=== PATIENT | female | born 2000 | race Caucasian/White ===

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

== ENCOUNTER 2020-05-24 15:06 | Emergency (ER) | payer MEDICAID, SELFPAY ==
[2020-05-24 15:50] VITALS: BP 136/82; PULSE 63; RESP 16; TEMP 36.2; O2SAT 98; BMI 25.7
--- NOTE | 2020-05-24 16:14 | HMH.EDUTC ---
[facility] Disposition Clinical Impression: Dental abscess, Jaw pain Disposition: Home, Self-Care Condition on Discharge: Good Instructions: Tooth Abscess Additional Instructions: Drink plenty of fluids. Take tylenol for pain or fever. Return if you begin to have difficulty breathing. Follow up with your regular doctor. GO TO THE ER FOR ANY WORSENING SYMPTOMS You have to follow up with a dentist. Prescriptions: Amoxicillin [Amoxicillin 500mg Tab] 500 mg PO TID 10 Days #30 tab Transmission Status: Received by [id number] Referrals: Prakash Pope MD [Primary Care Provider] - Time of Disposition: 16:22 Medical Decision Making - Medical Records Medical records reviewed: No: I reviewed the patient's medical records. - Barney Inquiry Pt receiving controlled substance: No Vital Signs: 05/24/20 15:50 05/24/20 16:28 Temperature 97.2 F L 97.2 F L Temperature Source Oral Pulse Rate 63 Pulse Rate [Right Brachial] 63 Respiratory Rate 16 16 Blood Pressure 136/82 Blood Pressure [Left Arm] 136/82 Blood Pressure Mean [Left Arm] 100 Blood Pressure Source [Left Arm] Automatic Cuff Blood Pressure Position [Left Arm] Sitting 02 Sat by Pulse Oximetry 98 Oxygen Delivery Method Room Air [facility] HPI - General Stated complaint: infected teeth Time Seen by Provider: 05/24/20 16:14 Mode of Arrival: Ambulatory Source of Information: Patient Limitations: No Limitations Description of Symptoms (Recalled from Triage Doc. by RN): PATIENT C/O INFECTED TEETH X 8 MONTHS HEENT Symptoms (Recalled from RN notes): No Resp Symptoms (Recalled from RN notes): No Skin Symptoms (Recalled from RN notes): No MS Symptoms (Recalled from RN notes): No Functional Status (Recalled from RN notes): WNL - History of Present Illness Provider Complaint: She states that she has left sided dental pain. This has been ongoing for the past several months. She denies any fever/chills. - Related Data Home Medications Medication Instructions Recorded Confirmed Vit,Calc78/Iron/Folic 1 each PO DAILY 04/17/19 04/17/19 [Prenatabs FA Tablet] Previous Rx's Medication Instructions Recorded Amoxicillin [Amoxicillin 500mg Tab] 500 mg PO TID 10 Days #30 tab 05/24/20 Allergies Allergy/AdvReac Type Severity Reaction Status Date / Time No Known Allergies Allergy Unverified 04/16/17 14:13 - Worker's Comp Is this a Worker's Comp case?: No [facility] History - Hepatitis A Screen Drug use history?: No High risk sexual behaviors?: No History of sexually transmitted infection?: No Currently employed?: No Childcare worker?: No Do you have indoor plumbing?: Yes Do you have electricity?: Yes Attestation statement:: This patient has been screened for Hepatitis A risk factors. I have reviewed the patient's past medical history: Yes Medical History: Denies:: Cancer, Diabetes Mellitus Type 1, Diabetes Mellitus Type 2, Internal Pacemaker, MRSA Laterality Cases: Bilateral: Tonsillectomy Other Surgeries: No: Pacemaker Amputation: No - Social History Smoking Status: Current every day smoker Tobacco Type: cigarettes # Packs/Day (cigarettes): 1 Alcohol Intake: never Occupational Status: other ROS Obtained: Yes All systems reviewed & no additional complaints - Constitutional Constitutional: Denies chills, Denies fever(s), Reports poor appetite, Denies malaise - ENT Ears, Nose, Mouth, and Throat: Reports as per HPI - Cardiovascular Cardiovascular: Denies chest pain Physical Exam - General General appearance: alert, in no apparent distress - Head Head exam: atraumatic, normocephalic, normal inspection - Eye Eye exam: Present: normal appearance, PERRL, EOMI - ENT ENT exam: Present: normal exam, normal oropharynx, mucous membranes moist, TM's normal bilaterally, normal external ear exam - Neck Neck exam: Present: normal inspection, full ROM, trachea midline. Absent: meningismus, lym
[2020-05-24 16:28] VITALS: BP 136/82; PULSE 63; RESP 16; TEMP 36.2; O2SAT 98
== END 2020-05-24 16:31 | disposition home or self-care (01) ==
PROVIDERS: Emergency Provider Nurse Practitioner Family; PCP Internal Medicine Adolescent Medicine
DX: K04.7 Periapical abscess without sinus (principal); F17.210 Nicotine dependence, cigarettes, uncomplicated
CPT/HCPCS: 99202; G0463

== ENCOUNTER 2020-08-31 17:02 | Emergency (ER) | payer MEDICAID, SELFPAY ==
--- NOTE | 2020-08-31 | XR_ITS ---
PROCEDURE: XR SHOULDER RT 1V X-RAY SHOULDER RIGHT ONE-VIEW CLINICAL INDICATION: DISLOCATION COMPARISON: CR SHOU3R [id number] VIEWS from 11/26/2015 CR SHOU1R [id number] VIEW-RT from 08/25/2016 CR SHOU3R [id number] VIEWS from 08/25/2016 CR SHOU1R [id number] VIEW-RT from 04/01/2017 CR SHOU3R [id number] VIEWS from 04/01/2017 CR SHOU3R [id number] VIEWS from 04/17/2017 CR SHOU1R [id number] VIEW-RT from 04/17/2017 CR XR SHOULDER RT 1V from 08/31/2020 FINDINGS: Single AP view of the shoulder at 1719 hours demonstrates infra glenoid dislocation. No obvious fracture. Another single AP view of the shoulder following reduction of the dislocation at 1740 hours demonstrates relocation of the humeral head. There is lucency along the lateral aspect of the humeral head possibly related to a Hill-Sachs injury. MRI or CT may confirm. IMPRESSION: Infra glenoid dislocation of the right humeral head which has been reduced with possible Hill-Sachs injury. Dictated by: Gabriel Chavis MD 09/01/2020 08:54 Gabriel Chavis MD in [place] 09/01/2020 08:54
[2020-08-31 17:03] VITALS: BP 122/74; PULSE 77; RESP 20; TEMP 36.6; O2SAT 98; BMI 22.6
--- NOTE | 2020-08-31 17:06 | HMH.EDGENADL ---
ED Disposition Clinical Impression: Recurrent dislocation, right shoulder Disposition: Home, Self-Care Condition on Discharge: Good Instructions: DI for Shoulder Dislocation, DI for Moderate Sedation, How to Use a Shoulder Immobilizer Additional Instructions: Shoulder immobilizer. Ibuprofen for pain. Ice for pain and swelling. Follow-up with orthopedics next week, Dr. Abarca, call for appointment. Referrals: Jeramie Abarca MD [Staff Physician] - - Critical Care Critical Care Time: No Attestation: On 08/31/20, the high probability of a clinically significant, sudden or life threatening deterioration of the following system(s) required my full and direct attention, intervention and personal management. The time I documented below is in addition to time spent performing reported procedures but includes the following listed in this critical care notation. Medical Decision Making - Barney Inquiry Pt receiving controlled substance: No Vital Signs: 08/31/20 17:03 08/31/20 17:07 08/31/20 17:25 Temperature 98 F 98.4 F Temperature Source Oral Oral Pulse Rate Pulse Rate [Radial] 77 56 L 74 Respiratory Rate 20 18 16 Blood Pressure Blood Pressure [Right Arm] 122/74 117/62 136/75 Blood Pressure Mean [Right Arm] 90 80 95 Blood Pressure Source Blood Pressure Source [Right Arm] Automatic Cuff Blood Pressure Position Blood Pressure Position [Right Arm] Sitting Sitting 02 Sat by Pulse Oximetry 98 100 100 Oxygen Delivery Method Room Air Room Air Nasal Cannula 08/31/20 18:20 Temperature 98.4 F Temperature Source Oral Pulse Rate 60 Pulse Rate [Radial] Respiratory Rate 20 Blood Pressure 111/55 L Blood Pressure [Right Arm] Blood Pressure Mean [Right Arm] Blood Pressure Source Automatic Cuff Blood Pressure Source [Right Arm] Blood Pressure Position Sitting Blood Pressure Position [Right Arm] 02 Sat by Pulse Oximetry Oxygen Delivery Method Room Air Orders (Tests/Meds): ED MEDICATIONS Discontinued Medications Generic Name Dose Route Start Last Admin Trade Name Freq PRN Reason Stop Dose Admin Propofol 100 mg 08/31/20 17:25 08/31/20 17:25 Propofol 10mg/Ml 20ml Vial IV 08/31/20 17:26 100 mg ONCE ONE Administration Propofol 50 mg 08/31/20 17:32 08/31/20 17:32 Propofol 10mg/Ml 20ml Vial IV 08/31/20 17:33 50 mg ONCE ONE Administration ORDERS Category Date Time Status XR shoulder RT 1V Routine Exams 08/31/20 Taken XR shoulder RT 1V Routine Exams 08/31/20 17:38 Taken - Radiology Data #2 Image(s): Shoulder Image Reviewed: Yes I reviewed the patient's radiology image #1 Dislocation #2 post reduction: General Adult HPI - General Stated complaint: dislocated right shoulder Time Seen by Provider: 08/31/20 17:07 - History of Present Illness HPI narrative: 2 hours ago dislocated her right shoulder, just by pointing . 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 This time it would not go back into place. She has not had to come to the hospital for reduction of her shoulder for quite some time. Her record here indicates that she was here in 2017 for dislocated shoulder and she thinks that was the last time she had to be treated in the hospital for the condition. She has seen an orthopedist and she says that she was told she would need surgery, but she was too young at the time. She has not followed up since then. Last oral intake 2 hours ago. - Related Data Home Medications Medication Instructions Recorded Confirmed Vit,Calc78/Iron/Folic 1 each PO DAILY 04/17/19 04/17/19 [Prenatabs FA Tablet] Previous Rx's Medication Instructions Recorded Amoxicillin [Amoxicillin 500mg Tab] 500 mg PO TID 10 Days #30 tab 05/24/20 Allergies
[2020-08-31 17:07] VITALS: BP 117/62; PULSE 56; RESP 18; O2SAT 100
[2020-08-31 17:25] VITALS: BP 136/75; PULSE 74; RESP 16; TEMP 36.9; O2SAT 100
--- NOTE | 2020-08-31 17:38 | XR_ITS ---
This report is currently processing and HAS NOT BEEN OFFICIALLY SIGNED BY THE PHYSICIAN - ESTIMATED TIME OF APPROVAL IS 09/01/2020 08:57. PROCEDURE: XR SHOULDER RT 1V X-RAY SHOULDER RIGHT ONE-VIEW CLINICAL INDICATION: DISLOCATION COMPARISON: CR SHOU3R [id number] VIEWS from 11/26/2015 CR SHOU1R [id number] VIEW-RT from 08/25/2016 CR SHOU3R [id number] VIEWS from 08/25/2016 CR SHOU1R [id number] VIEW-RT from 04/01/2017 CR SHOU3R [id number] VIEWS from 04/01/2017 CR SHOU3R [id number] VIEWS from 04/17/2017 CR SHOU1R [id number] VIEW-RT from 04/17/2017 CR XR SHOULDER RT 1V from 08/31/2020 FINDINGS: Single AP view of the shoulder at 1719 hours demonstrates infra glenoid dislocation. No obvious fracture. Another single AP view of the shoulder following reduction of the dislocation at 1740 hours demonstrates relocation of the humeral head. There is lucency along the lateral aspect of the humeral head possibly related to a Hill-Sachs injury. MRI or CT may confirm. IMPRESSION: Infra glenoid dislocation of the right humeral head which has been reduced with possible Hill-Sachs injury. Dictated by: Gabriel Chavis MD 09/01/2020 08:54 in [place]
[2020-08-31 18:20] VITALS: BP 111/55; PULSE 60; RESP 20; TEMP 36.9; O2SAT 100
== END 2020-08-31 18:25 | disposition home or self-care (01) ==
PROVIDERS: Emergency Provider Emergency Medicine; PCP Nurse Practitioner Family
DX: M24.411 Recurrent dislocation, right shoulder (principal); F17.210 Nicotine dependence, cigarettes, uncomplicated
CPT/HCPCS: 23655; 73020; 96374; 99152; 99283

== ENCOUNTER 2022-12-25 17:01 | Emergency (ER) | payer MEDICAID, SELFPAY ==
[2022-12-25 17:35] VITALS: BP 116/75; PULSE 99; RESP 19; TEMP 36.8; O2SAT 99; BMI 24.9
[2022-12-25 18:03] LABS: Adenovirus,PCR Not Detected (NotDetected); Bordetella Pertussis Not Detected (NotDetected); Chlamydophila Pneumoniae, PCR Not Detected (NotDetected); Coronavirus 19, PCR Not Detected (NotDetected); Coronavirus 229E Not Detected (NotDetected); Coronavirus NL63 Not Detected (NotDetected); Coronavirus OC43 Not Detected (NotDetected); Coronovirus HKU1,PCR Not Detected (NotDetected); Human Metapneumovirus Not Detected (NotDetected); Influenza A, PCR Not Detected (NotDetected); Influenza AH1, 2009 Not Detected (NotDetected); Influenza AH1, PCR Not Detected (NotDetected); Influenza AH3,PCR Not Detected (NotDetected); Influenza B, PCR Not Detected (NotDetected); Mycoplasma Pneumoniae, PCR Not Detected (NotDetected); Parainfluenza 1, PCR Not Detected (NotDetected); Parainfluenza 2, PCR Not Detected (NotDetected); Parainfluenza 3, PCR Not Detected (NotDetected); Parainfluenza 4, PCR Not Detected (NotDetected); Respiratory Syncytial Virus Not Detected (NotDetected)
--- NOTE | 2022-12-25 18:11 | EXP.UTC ---
Discharge Plan Disposition Patient Disposition: Home, Self-Care Condition: Good Prescriptions Prescriptions: New apdspwomigjgdyk-olqfftwws-DN [Bromfed DM] 2-30-10 mg/5 mL Syrup 10 ml PO Q4H PRN (Reason: Cough) Qty: 240 0RF No Action amoxicillin 500 MG tablet 500 mg PO TID 10 Days Qty: 30 0RF vit,vfsy59-bhfs-hhcmx 1 EACH tablet 1 each PO DAILY Referrals Follow up/Referrals: Leeann Ospina APRN [Primary Care Provider] - See instructions Activity Restrictions/Add. Instructions Additional Instructions/Restrictions: *Monitor Temp, Over the counter Motrin or Tylenol as directed/as needed Tylenol every 4 hours and Motrin every 6 hours (as long as your family doctor has told you that you can take it) for fever or pain. and straight to ER if unable to lower temp less than 101.0 after medication given *Warm salt water gargles may help to soothe the throat *Throat Lozenges? *Warm fluids like tea with honey may help to soothe the throat? *Sleep elevated *Humidifier/Vaporizer Follow up IMMEDIATELY for new or worsening symptoms or no Noticeable improvement over the next 48-72 hours. 911 for difficulty breathing or swallowing You were tested for today for Upper Respiratory Panel with COVID19 your test result should be back in the next 24-48 hours, you may check your results on the [facility] Portal Clinical Impressions Clinical Impression: Viral upper respiratory infection Instructions Patient Instructions: DI for Viral Upper Respiratory Infection -- Adult Discharge ED Provider: Mague Tay [facility] HPI General Stated complaint: cough sore throat body aches Mode of Arrival: Ambulatory Source of Information: Patient Limitations: No Limitations Time Seen by Provider: 12/25/22 18:11 Description of Symptoms (Recalled from Triage Doc. by RN): PATIENT C/O COUGH, RUNNY NOSE, CHEST CONGESTION, AND BODY ACHES X 1 WEEK HEENT Symptoms (Recalled from RN notes): Yes Resp Symptoms (Recalled from RN notes): Yes Skin Symptoms (Recalled from RN notes): No MS Symptoms (Recalled from RN notes): No Functional Status (Recalled from RN notes): WNL History of Present Illness Provider Complaint: Patient state that she was recently around family that just tested positive for COVID States that she has been having cough, nasal congestion runny nose and body aches State that she was worried that she may have it now too requesting and URP Related Data Home Medications Medication Instructions Recorded Confirmed vits,calcium no.78-iron 1 each PO DAILY Diet supplement 04/17/19 04/17/19 fumarate-folic acid 29 mg-1 mg tablet Previous Rx's Medication Instructions Recorded amoxicillin 500 mg tablet 500 mg PO TID 10 days #30 tabs 05/24/20 wwttvocgdnjofbj-lflhgrfgqcxhcqs-ER 10 ml PO Q4H PRN Cough #240 mL 12/25/22 2 mg-30 mg-10 mg/5 mL oral syrup (Bromfed DM) Allergies Allergy/AdvReac Type Severity Reaction Status Date / Time No Known Allergies Allergy Verified 12/25/22 18:01 Worker's Comp Is this a Worker's Comp case?: No [facility] Disclaimer: The information contained in this section may have been updated after the patient was seen, as this information can be updated by other users. Social History Smoking Status: Current every day smoker tobacco type: cigarettes packs per day: 1 alcohol intake: never current occupational status: other Travel in the last 8 weeks: None ROS Obtained: Yes All systems reviewed & no additional complaints except as documented and Yes Systems reviewed as appropriate & no additional complaints except as documented Constitutional Constitutional: Reports system reviewed and no additional complaints, except as documented, Reports as per HPI, Reports body ache, Reports chills and Reports fatigue ENT Ears, Nose, Mouth, and Throat: Reports system reviewed and no additional complaints, except as documented, Reports
[2022-12-25 18:20] VITALS: BP 116/75; PULSE 99; RESP 19; TEMP 36.8; O2SAT 99
[2022-12-25 20:04] LABS: Rhinovirus/Enterovirus Detected (NotDetected)
== END 2022-12-25 18:26 | disposition home or self-care (01) ==
PROVIDERS: Emergency Provider Nurse Practitioner; PCP Nurse Practitioner Family
DX: B34.8 Other viral infections of unspecified site (principal); J06.9 Acute upper respiratory infection, unspecified; F17.210 Nicotine dependence, cigarettes, uncomplicated; Z20.822 Contact with and (suspected) exposure to COVID-19
CPT/HCPCS: 87581; 87632; 87798; 99212; 99214; G0463

== ENCOUNTER 2023-07-25 12:12 | Emergency (ER) | payer OTHER, SELFPAY ==
[2023-07-25 12:13] VITALS: BP 146/95; PULSE 70; RESP 18; TEMP 36.8; O2SAT 98; BMI 24.9
--- NOTE | 2023-07-25 12:16 | XR_ITS ---
FINAL REPORT CLINICAL HISTORY: recurrent dislocation, pain COMPARISON: 08/31/2020 FINDINGS: Right shoulder Three views were obtained. There is anterior dislocation of the shoulder. The AC joint is intact. IMPRESSION: Anterior dislocation. Reviewed, Interpreted and Dictated by Tulio Livingston MD Transcribed by Khushi Parisi Authenticated and . [facility]
[2023-07-25 12:19] VITALS: BP 146/95; PULSE 93; O2SAT 99
[2023-07-25] MEDS: 0.9 % SODIUM CHLORIDE 1000ML 1,000 ML 999 ML IV (12:19)
[2023-07-25] MEDS: KETOROLAC 30MG/ML VIAL 15 MG IV (12:22)
[2023-07-25] MEDS: ONDANSETRON 4MG/2ML VIAL 4 MG IV (12:22)
[2023-07-25] MEDS: FENTANYL 100MCG/2ML VIAL 75 MCG IV (12:23)
[2023-07-25] MEDS: ACETAMINOPHEN 1,000MG/100ML VIAL 1000 MG IV (12:23)
--- NOTE | 2023-07-25 12:28 | HMH.EDGENADL ---
Discharge Plan Disposition Patient Disposition: Home, Self-Care Condition: Good Prescriptions Prescriptions: No Action amoxicillin 500 MG tablet 500 mg PO TID 10 Days Qty: 30 0RF ptkpsqazvioxqcq-dozgsijoz-UV [Bromfed DM] 2-30-10 mg/5 mL Syrup 10 ml PO Q4H PRN (Reason: Cough) Qty: 240 0RF vit,song70-rrwu-txxur 1 EACH tablet 1 each PO DAILY Referrals Follow up/Referrals: Carlo Barakat DO [Staff Physician] - See instructions Provider,Referral, [Primary Care Provider] - See instructions Activity Restrictions/Add. Instructions Additional Instructions/Restrictions: You were evaluated in the emergency department today. Please follow-up closely with orthopedics for further evaluation and management. I recommend leaving your sling in place for 24 hours. Your shoulder will continue to dislocate frequently without further intervention from orthopedics. Return to the emergency department for new or worsening symptoms. Clinical Impressions Clinical Impression: Recurrent dislocation of right shoulder Instructions Patient Instructions: DI for Shoulder Dislocation, DI for Shoulder Instability, DI for Moderate Sedation Discharge ED Provider: Jane Payan General Adult HPI General Chief complaint: PAIN Stated complaint: dislocated shoulder Time Seen by Provider: 07/25/23 12:15 History of Present Illness HPI narrative: This patient is a 23-year-old female with history of longstanding right shoulder instability presenting with concern for right shoulder dislocation. She states that usually she is able to get it back in place at home, as this has happened to her multiple times since she was a child, however it has been out since some point last night while she was sleeping and should not been able to get it in since she woke up this morning. Has been out for at least several hours she reports. She notes this happens often when she is sleeping. No known traumatic injuries. She states that her hand is starting to get tingly. She has not seen orthopedics for this. No other concerns or complaints noted at this time. Related Data Home Medications Medication Instructions Recorded Confirmed vits,calcium no.78-iron 1 each PO DAILY Diet supplement 04/17/19 04/17/19 fumarate-folic acid 29 mg-1 mg tablet Previous Rx's Medication Instructions Recorded amoxicillin 500 mg tablet 500 mg PO TID 10 days #30 tabs 05/24/20 cxtjsbqhnvjgfry-iwznphtuwxubnag-RB 10 ml PO Q4H PRN Cough #240 mL 12/25/22 2 mg-30 mg-10 mg/5 mL oral syrup (Bromfed DM) Allergies Allergy/AdvReac Type Severity Reaction Status Date / Time No Known Allergies Allergy Verified 12/25/22 18:01 [facility] Disclaimer: The information contained in this section may have been updated after the patient was seen, as this information can be updated by other users. Social History Smoking Status: Current every day smoker tobacco type: cigarettes packs per day: 1 alcohol intake: never current occupational status: other Travel in the last 8 weeks: None ROS Obtained: Yes All systems reviewed & no additional complaints except as documented Physical Exam General General appearance: alert Comment: Uncomfortable appearing, tearful Head Head exam: atraumatic and normocephalic Eye Eye exam: Present normal appearance, PERRL and EOMI ENT ENT exam: Present normal exam, normal oropharynx, mucous membranes moist and normal external ear exam Neck Neck exam: Present normal inspection, full ROM and trachea midline; Absent tenderness Chest Chest inspection: Present normal inspection and symmetric chest wall rise; Absent tenderness Respiratory Respiratory exam: Present normal lung sounds bilaterally; Absent respiratory distress, wheezes, stridor or accessory muscle use Cardiovascular Cardiovascular exam: Present regular rate and normal rhythm Abdominal Exam Abdominal exam: Present soft; Absent distention, tenderness or guarding Extremities Exam Extremities exam: Present full ROM, normal capillary refill and other (Obvious right shoulder dislocation. Pulses 2+ distally with intact capillary refill and sensation. All compartments soft.); Absent edema Back Exam Back exam: Present normal inspection and full ROM; Absent tenderness Neurological Exam Neurological exam: Present alert, oriented X3, CN II-XII intact and normal gait; Absent motor sensory deficit Psychiatric Psychiatric exam: Present normal affect and normal mood Skin Skin exam: Present warm and dry Medical Decision Making Medical Records Medical records reviewed: Yes I reviewed the patient's medical records. Barney Inquiry Pt receiving controlled substance: No Vital Signs: 07/25/23 12:13 07/25/23 12:19 07/25/23 12:30 Temperature 98.2 F Temperature Source Oral Pulse Rate 93 H Pulse Rate [Right] 70 93 H Respiratory Rate 18 Blood Pressure 146/95 H Blood Pressure [Left Arm] 146/95 H 146/95 H Blood Pressure Mean [Left Arm] 112 112 Blood Pressure Source Blood Pressure Source [Left Arm] Automatic Cuff 02 Sat by Pulse Oximetry 98 99 99 Oxygen Delivery Method Room Air Room Air 07/25/23 12:33 07/25/23 13:00 07/25/23 13:20 Temperature 98.0 F Temperature Source Oral Pulse Rate 79 75 77 Pulse Rate [Right] Respiratory Rate 18 Blood Pressure 119/97 H 119/76 134/77 Blood Pressure [Left Arm] Blood Pressure Mean [Left Arm] Blood Pressure Source Automatic Cuff Blood Pressure Source [Left Arm] 02 Sat by Pulse Oximetry 100 100 Oxygen Delivery Method Room Air Lab Data Lab results reviewed: Yes I reviewed the patient's lab results. Orders (Tests/Meds): ED MEDICATIONS Discontinued Medications Generic Name Dose Route Start Last Admin Trade Name Freq PRN Reason Stop Dose Admin Acetaminophen 1,000 mg 07/25/23 12:16 07/25/23 12:23 Acetaminophen 1,000mg/100ml Vial IV 07/25/23 12:17 1,000 mg ONCE ONE Administration Fentanyl Citrate 75 mcg 07/25/23 12:16 07/25/23 12:23 Fentanyl 100mcg/2ml Vial IV 07/25/23 12:17 75 mcg ONCE ONE Administration Sodium Chloride 1,000 mls @ 999 mls/hr 07/25/23 12:19 07/25/23 12:19 Sod Chlor 0.9% 1000ml Bag IV 07/25/23 13:19 999 mls/hr .Q1H1M YE Administration Ketamine HCl 70 mg 07/25/23 12:19 07/25/23 12:30 Ketamine 50mg/1ml Syringe IV 07/25/23 12:20 70 mg ONCE ONE Administration Ketorolac Tromethamine 15 mg 07/25/23 12:16 07/25/23 12:22 Ketorolac 30mg/Ml Vial IV 07/25/23 12:17 15 mg ONCE ONE Administration Ondansetron HCl 4 mg 07/25/23 12:16 07/25/23 12:22 Ondansetron 4mg/2ml Vial IV 07/25/23 12:17 4 mg ONCE ONE Administration ORDERS Category Date Time Status XR shoulder RT min 2V Stat Exams 07/25/23 12:16 Taken XR shoulder RT min 2V Stat Exams 07/25/23 12:34 Taken Medical Decision Narrative: In summary, this patient is a 23-year-old female presenting to the Emergency Department for evaluation of right dislocation in setting of chronic right shoulder instability. Differential diagnoses considered include but are not limited to dislocation, fracture, neurovascular injury. Ruling out the most morbid conditions drove assessment. On exam, the patient is uncomfortable and tearful. She has obvious right shoulder dislocation, but at this time is neurovascularly intact. She was given a bolus of IV fluids as well as IV Toradol, acetaminophen, fentanyl, and Zofran. Workup included right shoulder x-ray. I initially attempted manipulation at bedside after pain medication, however patient could not tolerate this and stated it was too painful. Given this, decision was made to perform procedural sedation for reduction of the right shoulder dislocation. Patient consented after explanation of risks and benefits. I independently interpreted initial x-ray prior to the radiologist read and noted right shoulder dislocation. Please see their read for final interpretation. Patient underwent procedural sedation with ketamine, which she tolerated very well. She was only given 1 dose of ketamine and reduction was achieved right away. Afterward, she returned to her preprocedure baseline without issue. I independently interpreted postreduction x-ray and noted appropriate reduction of her right shoulder. She remained neurovascularly intact afterward and was placed in a shoulder immobilizing sling. Given that she is returned to her baseline and is neurovascularly intact, feel she is appropriate for discharge with outpatient follow-up. I advised that she follow-up very closely with orthopedics, as her shoulder will continue to dislocate given the significant instability. She was given strict return precautions and was discharged after all questions were answered. Procedures Risk/Benefits of Procedure(s) Were Explained: Yes Orthopedic Joint Reduction Joint #1: Time Out Performed: Yes Side: right Joint Reduction Location: shoulder Analgesia: procedural sedation Shoulder Technique Used (if applicable): traction/counter-traction Post-reduction neuro exam: intact and no change Post-reduction vascular: intact and no change Post Reduction X-Ray Obtained: Yes Post Reduction X-Ray Results: reduced Splint Applied: Yes (shoulder immobilizing sling) Patient Tolerated Procedure: well Procedural Sedation A heart and lung assessment was performed on this patient at: 12:31 Mallampati Score:: Class I Indication: fracture/dislocation reduction ASA Class: I Time of Last PO Intake: 20:00 Preparation: engineering technician applied, pulse oximeter, capnometry used, supplemental O2 applied, reversal agents at bedside, suction/airway equipment at bedside and IV secured Ketamine: IV Ketamine dose (mg): 70 Patient Tolerated Procedure: well and no complications Complications: none Critical Care Critical Care Time Critical Care Time: No
[2023-07-25 12:30] VITALS: BP 146/95; PULSE 93; O2SAT 99
[2023-07-25] MEDS: KETAMINE 50MG/1ML SYRINGE 70 MG IV (12:30)
[2023-07-25 12:33] VITALS: BP 119/97; PULSE 79; O2SAT 100
--- NOTE | 2023-07-25 12:34 | XR_ITS ---
FINAL REPORT CLINICAL HISTORY: postreduction FINDINGS: Right shoulder A single view was obtained. The shoulder has been reduced and appears to be in proper position. IMPRESSION: Shoulder in proper position postreduction. Reviewed, Interpreted and Dictated by Tulio Livingston MD Transcribed by Khushi Parisi Authenticated and [facility]
[2023-07-25 13:00] VITALS: BP 119/76; PULSE 75; O2SAT 100
[2023-07-25 13:20] VITALS: BP 134/77; PULSE 77; RESP 18; TEMP 36.7; O2SAT 98
== END 2023-07-25 13:20 | disposition home or self-care (01) ==
PROVIDERS: Emergency Provider Emergency Medicine
DX: S43.014A Anterior dislocation of right humerus, initial encounter (principal); F17.210 Nicotine dependence, cigarettes, uncomplicated; X58.XXXA Exposure to other specified factors, initial encounter
CPT/HCPCS: 23650; 73030; 96361; 96374; 96375; 99152; 99153; 99284; J0131; J2405

== ENCOUNTER 2024-02-27 15:33 | Emergency (ER) | payer OTHER, SELFPAY ==
--- NOTE | 2024-02-27 15:45 | ED_ITS ---
<Statement entered by Jed Harper MD - 02/27/24 22:28> I was consulted by the JO, and we discussed the complexity of the problems being addressed. I approved the treatment and management plan for this patient's care in the emergency department, thus performing a substantive portion of the medical decision making. Jed Harper MD Discharge Plan Disposition Patient Disposition: Home, Self-Care Prescriptions Prescriptions: No Action amoxicillin 500 MG tablet 500 mg PO TID 10 Days Qty: 30 0RF hfftyidbmktbkyp-bmjqagrgc-QD [Bromfed DM] 2-30-10 mg/5 mL Syrup 10 ml PO Q4H PRN (Reason: Cough) Qty: 240 0RF vit,vpbf00-kytu-tuwoj 1 EACH tablet 1 each PO DAILY Referrals Follow up/Referrals: Provider,Referral, [Primary Care Provider] - See instructions Activity Restrictions/Add. Instructions Additional Instructions/Restrictions: At this time it was felt you are safe to be discharged home. If new or worsening symptoms please do not hesitate to return the emergency department. As discussed please follow-up with Dr. Ornelas tomorrow. I will call you if you have evidence of urinary tract infection on your repeat urinalysis. Clinical Impressions Clinical Impression: Threatened miscarriage, Ovarian cyst Print Language Print Language: Swazi Discharge ED Provider: Jed Harper General Adult HPI General Chief complaint: OB/Uterine Contractions Stated complaint: + test and passing blood clots Time Seen by Provider: 02/27/24 15:45 History of Present Illness HPI narrative: Patient presents for evaluation of lower abdominal pain and vaginal bleeding. Patient is a G3, P2 Ab0 and her last menstrual period was January 04 and she had a positive test on February 10. Patient presents after starting having cramping last night and then has passed a blood clot today. She denies any dysuria vaginal discharge hematuria chest pain shortness of breath fever chills hemoptysis hematochezia melena nausea vomiting diarrhea. Related Data Home Medications ?Medication ?Instructions ?Recorded ?Confirmed vits,calcium no.78-iron 1 each PO DAILY Diet supplement 04/17/19 04/17/19 fumarate-folic acid 29 mg-1 mg tablet Previous Rx's ?Medication ?Instructions ?Recorded amoxicillin 500 mg tablet 500 mg PO TID 10 days #30 tabs 05/24/20 sbcqxydlbavczmu-aweauqksojeqtaf-YK 10 ml PO Q4H PRN Cough #240 mL 12/25/22 2 mg-30 mg-10 mg/5 mL oral syrup (Bromfed DM) Allergies Allergy/AdvReac Type Severity Reaction Status Date / Time No Known Allergies Allergy Verified 12/25/22 18:01 [facility] Disclaimer: The information contained in this section may have been updated after the patient was seen, as this information can be updated by other users. Social History Smoking Status: Current every day smoker tobacco type: cigarettes packs per day: 1 alcohol intake: never current occupational status: other Travel in the last 8 weeks: None Other Medical History Have you received the Flu Vaccine for this season: Yes Have you received the Pneumonia Vaccine: No ROS Obtained: Yes Systems reviewed as appropriate & no additional complaints except as documented Physical Exam General General appearance: alert and in no apparent distress Respiratory Respiratory exam: Present normal lung sounds bilaterally Cardiovascular Cardiovascular exam: Present regular rate Neurological Exam Neurological exam: Present alert and oriented X3 Medical Decision Making Medical Records Medical records reviewed: Yes I reviewed the patient's medical records. Screening: Per USPSTF and CDC recommendations, given the prevalence of disease in our region, it is our hospital?s policy to screen for HIV and viral Hepatitis for all patients aged 18 and over and those with ongoing risk factors. Barney Inquiry Pt receiving controlled substance: No Vital Signs: 02/27/24 15:56 02/27/24 17:50 Temperature 98.4 F 98.4 F Temperature Source Oral Oral Pulse Rate 90 Pulse Rate [Left] 94 H Respiratory Rate 18 16 Blood Pressure 132/70 Blood Pressure [Right Arm] 137/79 Blood Pressure Mean [Right Arm] 98 Blood Pressure Source Automatic Cuff Blood Pressure Source [Right Arm] Automatic Cuff Blood Pressure Position Sitting Blood Pressure Position [Right Arm] Sitting 02 Sat by Pulse Oximetry 100 Oxygen Delivery Method Room Air Room Air Lab Data Lab results reviewed: Yes I reviewed the patient's lab results. Lab Results 02/27/24 14:31: Urine Color Yellow, Urine Appearance Clear, Urine pH 8.5, Ur Specific [place] 1.020, Urine Protein Negative, Urine Glucose (UA) Negative, Urine Ketones Negative, Urine Blood Trace-i, Urine Nitrate Negative, Urine Bilirubin Negative, Urine Urobilinogen 0.2, Ur Leukocyte Esterase Negative, Urine RBC 3-5, Urine WBC 3-5, Ur Squamous Epith Cells 5-10, Amorphous Sediment 1+, Urine Bacteria 2+ 02/27/24 15:56: WBC 6.2, RBC 5.00, Hgb 12.9, Hct 39.3, MCV 78.5 L, MCH 25.7 L, MCHC 32.8, RDW 15.3, Plt Count 168, MPV 8.4, Neut % (Auto) 33.4 L, Lymph % (Auto) 59.5 H, [place] % (Auto) 4.5, Eos % (Auto) 0.9, Baso % (Auto) 1.7, Neut # (Auto) 2.1, Lymph # (Auto) 3.7, [place] # (Auto) 0.3, Eos # (Auto) 0.1, Baso # (Auto) 0.1, Total Counted 100, Neutrophils % (Manual) 28 L, Lymphocytes % (Manual) 60 H, Monocytes % (Manual) 9, Eosinophils % (Manual) 2, Basophils % (Manual) 1.0, Platelet Estimate Normal, RBC Morphology Normal, Sodium 141, Potassium 3.5, Chloride 108 H, Carbon Dioxide 24, Anion Gap 12.5, BUN 5 L, C reatinine 0.50 L, Estimated Creat Clear 175, Estimated GFR 153, Est GFR ( Amer) 185, Glucose 72 L, Calcium 9.1, Total Bilirubin 0.6, AST 38 H, ALT 38, Alkaline Phosphatase 81, Total Protein 6.8, Albumin 4.3, Globulin 2.5, Albumin/Globulin Ratio 1.7, TSH 0.93, HCG, Quant 52029 H 02/27/24 15:56: HCG, Quant 00073 H, HIV 1&2 Antibody Rapid Nonreactive 02/27/24 16:09: Urine Color Yellow, Urine Appearance Clear, Urine pH 8.5, Ur Specific [place] 1.025, Urine Protein Negative, Urine Glucose (UA) Negative, Urine Ketones Negative, Urine Blood 3+ A, Urine Nitrate Negative, Urine Bilirubin Negative, Urine Urobilinogen 0.2, Ur Leukocyte Esterase 1+ A, Urine RBC 20-50, Urine WBC 20-50, Ur Squamous Epith Cells 10-20, Urine Bacteria 4+, Urine HCG, Qual Positive 02/27/24 15:56 02/27/24 15:56 Orders (Tests/Meds): ORDERS Category Date Time Status CBC w/Auto Diff [Complete Blood Count Auto Diff] Stat Lab 02/27/24 15:56 Completed CMP [Comprehensive Metabolic Panel] Stat Lab 02/27/24 15:56 Completed HCG,Quantitative Stat Lab 02/27/24 15:56 Completed HCG,Quantitative Stat Lab 02/27/24 15:56 Completed HIV (1&2) Antibody Rapid Stat Lab 02/27/24 15:56 Completed Hep C Ab with Reflex to RNA Stat Lab 02/27/24 15:56 Received TSH [Thyroid Stimulating Hormone] Stat Lab 02/27/24 15:56 Completed UA [Urinalysis and Microscopic] Stat Lab 02/27/24 16:09 Completed Urinalysis and Microscopic Stat Lab 02/27/24 14:31 Completed Urine , HCG Qual. Stat Lab 02/27/24 16:09 Completed Urine Culture Stat Micro 02/27/24 16:09 Received US OB transvaginal Stat Ultrasound 02/27/24 16:30 Completed Medical Decision Narrative: In summary patient is a 23-year-old female who presents to the emergency department for evaluation of vaginal bleeding in a patient. Patient is hemodynamically stable upon arrival, febrile. Exam is remarkable for mild lower abdominal tenderness without rebound or guarding or rigidity. Bowel sounds normal active.. Differential diagnosis includes threatened versus functional bleeding etc. Initial workup will be conducted with hematologic labs initial urine followed by quantitative if it is positive and followed by transvaginal ultrasound and that order. Initial interventions include Tylenol. Initial workup reviewed by me shows the patient is positive for and quantitative hCG is over 30,000 and the remainder of her hematologic labs are nonactionable. Transvaginal ultrasound confirmed an intrauterine . Given that Dr. Harper had a discussion with the patient regarding the next steps and after which patient is appropriate for discharge with follow-up with her [employer] within 48 hours however she already has an appointment for tomorrow. Critical Care Critical Care Time Critical Care Time: No
[2024-02-27 15:56] VITALS: BP 137/79; PULSE 94; RESP 18; TEMP 36.9; O2SAT 100; BMI 24.0
[2024-02-27 16:13] LABS: Basophils # 0.1 K/mm3 (0-0.2); Basophils % 1.7 % (0.1-2.0); Eosinophils # 0.1 K/mm3 (0.0-0.4); Eosinophils % 0.9 % (0.1-12.0); Hematocrit 39.3 % (37.0-47.0); Hemoglobin 12.9 g/dL (12.2-16.2); Lymphocytes # 3.7 K/mm3 (0.7-4.5); Lymphocytes % 59.5 % (10-50); Mean Corpuscular HGB Conc 32.8 g/dL (31.8-35.4); Mean Corpuscular Hemoglobin 25.7 pg (27.0-31.2); Mean Corpuscular Volume 78.5 fl (81-99); Mean Platelet Volume 8.4 fl (7.4-10.4); Monocytes # 0.3 K/mm3 (0.1-1.0); Monocytes % 4.5 % (1.7-9.3); Neutrophils # 2.1 K/mm3 (1.8-7.8); Neutrophils % 33.4 % (37.0-80.0); Platelet Count 168 K/mm3 (142-424); Red Cell Distribution Width 15.3 % (11.5-17.5); White Blood Count 6.2 K/mm3 (4.8-10.8)
[2024-02-27 16:15] LABS: Appearance,Urine CLEAR (Clear); Bilirubin,Urine Negative (Negative); Blood, Urine 3+ (Negative); Color,Urine YELLOW (Yellow); Glucose,Urine (UA) Negative (Negative); Ketones,Urine Negative (Negative); Leukocyte Esterase,Urine 1+ (Negative); Microscopic, Urine URINE MICROSCOPIC (MICROSCOPIC); Nitrate,Urine Negative (Negative); PH,Urine 8.5 (5.0-8.5); Protein,Urine Negative (Negative); Specific Gravity, Urine 1.025 (1.005-1.030); Urobilinogen,Urine 0.2 EU/dl (0.2)
[2024-02-27 16:17] LABS: Alanine Aminotransferase 38 U/L (12-78); Albumin Level 4.3 g/dl (3.5-5.0); Albumin/Globulin Ratio 1.7 (1.1-1.8); Alkaline Phosphatase 81 U/L (38-126); Anion Gap 12.5 mEq/L (5-15); Aspartate Amino Transferase 38 U/L (14-36); Bilirubin,Total 0.6 mg/dl (0.2-1.3); Blood Urea Nitrogen 5 mg/dl (7-17); Calcium 9.1 mg/dl (8.4-10.2); Carbon Dioxide 24 mmol/L (22.0-30.0); Chloride 108 mmol/L (98-107); Creatinine Clearance Estimated 175 mL/min (50-200); Estimated Glomerular Filt Rate 153 ml/min (>60); GFR (African American) 185 ML/MIN (>60); Globulin 2.5 g/dL (1.3-3.2); Glucose 72 mg/dl (74-100); MANUAL DIFFERENTIAL MANUAL DIFFERENTIAL (MANUAL DIFF); Potassium 3.5 mmoL/L (3.5-5.1); Sodium 141 mmol/L (136-145); Total Protein,Serum 6.8 g/dl (6.3-8.2)
[2024-02-27 16:20] LABS: Urine Pregnancy, HCG Qual. Positive (Negative)
[2024-02-27 16:29] LABS: Bacteria,Urine 4+ /lpf; RBC,Urine 20-50 #/hpf (0-3); WBC,Urine 20-50 #/hpf (0-3)
--- NOTE | 2024-02-27 16:30 | US_ITS ---
PROCEDURE INFORMATION: Exam: US , Transvaginal Exam date and time: 02/27/2024 4:22 PM Age: 23 years old Clinical indication: Lmp or gestational age (in weeks): Lmp - 01/05/2024; Other: Bleeding -- cramping; ; Additional info: Vag bleeding, LABS AND CLINICAL REPORTS: Last menstrual period start date: 01/05/2024 Gestational age (Established): 7 w 4 d Estimated due date (Established): 10/11/2024 TECHNIQUE: Imaging protocol: Real-time transvaginal obstetrical ultrasound of the maternal pelvis with image documentation. Transvaginal imaging was used for better evaluation of the fetus, adnexa, and/or cervix. COMPARISON: No relevant prior studies available. FINDINGS: Gestation: Yolk sac measures 4.7 mm. There is a single intrauterine gestation. Yolk sac measures 0.5 cm. heart rate: 128 bpm. BIOMETRY: Gestational age (AUA): 6 w 3 d. Estimated due date (AUA): 10/19/2024 [place] rump length (CRL): 6.02 mm. EGA (CRL) is 6 w 3 d. MATERNAL: Right ovary/adnexa: Right ovary measures 2.29 cm x 1.99 cm x 1.43 cm. Right ovarian volume is 3.41 mL. Left ovary/adnexa: Left ovary measures 2.77 cm x 2.29 cm x 2.84 cm. Left ovarian volume is 9.43 mL. There is a mildly complex left ovarian cyst measuring 1.5 x 1.4 x 1.6 cm. IMPRESSION: 1. Single live intrauterine gestation measuring six weeks three days without focal abnormality. 2. Mildly complex left ovarian cyst, attention on follow-up suggested.
[2024-02-27 16:48] LABS: Thyroid Stimulating Hormone 0.93 uIU/mL (0.465-4.68)
[2024-02-27 16:51] LABS: Eosinophils % 2 % (0-3); Lymphocytes % 60 % (10-50); Monocytes % 9 % (2-9); Neutrophils % 28 % (42-76); RBC Morphology Normal; Total Cells Counted 100
[2024-02-27 16:52] LABS: Platelet Estimate Normal
[2024-02-27 17:02] LABS: HCG,Quantitative 38004 mIU/ml (0-5.42)
[2024-02-27 17:50] VITALS: BP 132/70; PULSE 90; RESP 16; TEMP 36.9; O2SAT 99
[2024-02-27 17:53] LABS: Microscopic, Urine URINE MICROSCOPIC (MICROSCOPIC)
[2024-02-27 18:07] LABS: Appearance,Urine CLEAR (Clear); Bilirubin,Urine Negative (Negative); Blood, Urine TRACE-I (Negative); Color,Urine YELLOW (Yellow); Glucose,Urine (UA) Negative (Negative); Ketones,Urine Negative (Negative); Leukocyte Esterase,Urine Negative (Negative); Nitrate,Urine Negative (Negative); PH,Urine 8.5 (5.0-8.5); Protein,Urine Negative (Negative); Urobilinogen,Urine 0.2 EU/dl (0.2)
[2024-02-27 18:14] LABS: HCG,Quantitative 36117 mIU/ml (0-5.42)
[2024-02-27 18:25] LABS: Amorphous Sediment,Urine 1+ /lpf; Bacteria,Urine 2+ /lpf
[2024-02-27 19:43] LABS: HIV (1&2) Antibody Rapid NONREACTIVE (NONREACTIVE)
[2024-02-28 09:15] LABS: HCV Ab Non Reactive (Non Reactive)
[2024-03-02 21:09] LABS: Neisseria gonorrhoeae, NAA Negative (Negative)
== END 2024-02-27 17:50 | disposition home or self-care (01) ==
PROVIDERS: Physician Assistant; Emergency Provider Emergency Medicine
DX: N83.209 Unspecified ovarian cyst, unspecified side (principal); O20.0 Threatened abortion; R10.30 Lower abdominal pain, unspecified
CPT/HCPCS: 76817; 80050; 80053; 81001; 81025; 84443; 84702; 85007; 85025; 86803; 87086; 87389; 87491; 87591; 99283